=== PATIENT | male | born 1960 | race Caucasian/White ===

== ENCOUNTER 2024-02-02 11:10 | Outpatient (REF) | payer SELFPAY ==
[2024-02-02 13:39] LABS: Eosinophils Percent Auto 0.6 % (0-4); Hematocrit 38.1 % (42.0-52.0); Hemoglobin 13.2 g/dl (14.0-18.0); Lymphocytes Absolute Auto 1.4 X10*3/uL (1.2-4.9); Lymphocytes Percent Auto 82.2 % (20-40); MANUAL DIFF FLAG SCAN; Mean Corpuscular HGB Conc 34.6 g/dl (31.0-36.0); Mean Corpuscular Hemoglobin 32.3 pg (27.0-33.0); Mean Corpuscular Volume 93.2 fL (80.0-98.0); Monocytes Percent Auto 0.6 % (2-11); Neutrophils Absolute Auto 0.3 x10*3/uL (2.0-8.3); Neutrophils Percent Auto 16.6 % (45-73); Red Blood Count 4.09 X10*6/uL (4.60-5.80); Red Cell Distribution Width 14.1 % (11.0-16.0); SCAN SMEAR FLAG 1; White Blood Count 1.7 X10*3/uL (4.8-10.8)
[2024-02-02 13:54] LABS: Alanine Aminotransferase 14 U/L (0-40); Albumin Level 4.5 g/dL (3.5-5.0); Alkaline Phosphatase 24 U/L (39-117); Anion Gap 12 (12-20); Aspartate Amino Transferase 18 U/L (5-37); Bilirubin Total 0.9 mg/dL (0.0-1.0); Blood Urea Nitrogen 19 mg/dL (9-16); Calcium 9.5 mg/dL (8.4-10.2); Carbon Dioxide 27 mmol/L (22-29); Chloride 106 mmol/L (96-108); Estimated Glomerular Filt Rate > 60; Glucose Random 103 mg/dL (60-115); Potassium 4.5 mmol/L (3.3-5.1); Sodium 140 mmol/L (135-145); Total Protein 7.6 g/dL (6.5-8.0)
[2024-02-02 13:58] LABS: Mean Platelet Volume 9.7 fL (9.4-12.4); Platelet Count 83 X10*3/uL (160-400)
[2024-02-02 14:00] LABS: SLIDE REVIEW VERIFIED
== END 2024-02-02 11:11 | disposition home or self-care (01) ==
LOC: HO.HHCL 11:10
PROVIDERS: Visit Provider Internal Medicine
DX: K21.9 Gastro-esophageal reflux disease without esophagitis (principal); I10 Essential (primary) hypertension
CPT/HCPCS: 36415; 80053; 85025

== ENCOUNTER 2024-03-11 08:41 | Outpatient (REF) | payer SELFPAY ==
[2024-03-11 11:54] LABS: Basophils Percent Auto 0.5 % (0-2); Eosinophils Percent Auto 0.5 % (0-4); Hematocrit 35.7 % (42.0-52.0); Hemoglobin 12.1 g/dl (14.0-18.0); Lymphocytes Absolute Auto 1.7 X10*3/uL (1.2-4.9); MANUAL DIFF FLAG SCAN; Mean Corpuscular HGB Conc 33.9 g/dl (31.0-36.0); Mean Corpuscular Hemoglobin 31.2 pg (27.0-33.0); Mean Platelet Volume 9.7 fL (9.4-12.4); Neutrophils Absolute Auto 0.4 x10*3/uL (2.0-8.3); Platelet Count 127 X10*3/uL (160-400); Red Blood Count 3.88 X10*6/uL (4.60-5.80); Red Cell Distribution Width 13.8 % (11.0-16.0); SCAN SMEAR FLAG 1
[2024-03-11 12:05] LABS: White Blood Count 2.1 X10*3/uL (4.8-10.8)
[2024-03-11 12:12] LABS: C Reactive Protein 3.12 mg/dL (< or = 0.50); Lactate Dehydrogenase 221 U/L (118-273)
[2024-03-11 12:23] LABS: SLIDE REVIEW VERIFIED
[2024-03-11 12:43] LABS: Erythrocyte Sedimentation Rate 86 MM/HR (0-15)
[2024-03-11 12:52] LABS: Folate 10.8 ng/mL (> or = 4.0); Vitamin B12 565 pg/mL (200-900)
== END 2024-03-11 08:42 | disposition home or self-care (01) ==
LOC: HO.HHCL 08:41
PROVIDERS: Visit Provider General Practice
DX: D70.9 Neutropenia, unspecified (principal)
CPT/HCPCS: 36415; 82607; 82746; 83615; 85025; 85652; 86140

== ENCOUNTER 2024-03-14 11:17 | Outpatient (REF) | payer MEDICARE, SELFPAY ==
--- NOTE | ~2024-03-14 | CT_ITS ---
EXAMINATION: CT ABDOMEN AND PELVIS WITH CONTRAST CLINICAL INFORMATION: Splenomegaly COMPARISON: None available. TECHNIQUE: Multidetector volumetric images were obtained from the superior aspect of the liver through the pubic symphysis following administration 85 mL of Omnipaque 350 intravenous contrast. Sagittal and coronal reformatted images were obtained on the technologist's workstation. Oral contrast: Yes This CT examination was performed using dose optimization techniques as appropriate, variously including the following: *Automated exposure control *Adjustment of mA and/or kV according to patient size (this includes techniques or standardized protocols for targeted exams where dose is matched to indication/reason for exam; i.e. extremities or head) *Use of iterative reconstruction technique DLP: 387 mGy-cm FINDINGS: LUNG BASES: The visualized lung bases are unremarkable. LIVER, GALLBLADDER, AND BILIARY TREE: The liver is normal in size, shape, and attenuation. No focal hepatic lesion or biliary ductal dilatation is present. The gallbladder is unremarkable with no evidence of radiopaque gallstones, gallbladder wall thickening, or obvious pericholecystic inflammatory changes. PANCREAS: Unremarkable. SPLEEN: The spleen is enlarged, up to 16.7 cm in length. ADRENAL GLANDS: Unremarkable. KIDNEYS AND URETERS: The kidneys are normal in size, shape, and attenuation. No hydronephrosis, hydroureter, or calculi seen. No perinephric stranding. BLADDER: Unremarkable. GASTROINTESTINAL TRACT: Sigmoid diverticulosis. No focal inflammatory process or obstruction. Normal appendix. ABDOMINAL WALL: No significant hernia is appreciated. LYMPH NODES: Normal. VASCULAR: The splenic vein is prominent. PELVIC VISCERA: The prostate is mildly enlarged with several coarse calcifications. OSSEOUS STRUCTURES: There is a superior endplate fracture of L1 which appears chronic, with 50-60% loss of vertebral body height. CT/CT abdomen pelvis w IV con IMPRESSION: 1. No focal inflammatory process or obstruction. 2. Splenomegaly. The splenic vein is prominent and may indicate portal hypertension. Liver appears normal. 3. Sigmoid diverticulosis. 4. Chronic appearing superior endplate fracture of L1. Fleischner guidelines were followed. Electronically signed by: Landry Farr MD 03/14/2024 05:28 PM [facility]
[2024-03-14] MEDS: iohexoL 350 MG/ML 100 ML INFUS..BTL 85 ML IV (14:31)
[2024-03-14] MEDS: Barium Sulfate Oral (Vanilla) 450 ML ORAL.SUSP 900 ML PO (14:32)
[2024-03-14 16:47] LABS: Creatinine POC 0.9 mg/dL (0.5-1.4); GFR POC > 60
== END 2024-03-14 11:18 | disposition home or self-care (01) ==
LOC: HO.CT 11:17
PROVIDERS: PCP General Practice; Visit Provider General Practice
DX: D70.9 Neutropenia, unspecified (principal); R10.10 Upper abdominal pain, unspecified; R16.1 Splenomegaly, not elsewhere classified
CPT/HCPCS: 74177; 82565; Q9967

== ENCOUNTER 2024-03-18 12:22 | Emergency (ER) | payer MEDICARE, OTHER, SELFPAY ==
--- NOTE | 2024-03-18 12:25 | ED.GENADULT ---
HPI - General Adult General Chief complaint: Recheck/Abnormal Lab/Rx Stated complaint: Sent By Drs Office Time Seen by Provider: 03/18/24 13:40 Source: patient Mode of arrival: ambulatory Limitations: no limitations History of Present Illness ED Provider: DR. Kenyon HPI narrative: 63-year-old male was brought in from [facility] for evaluation of possible rectal bleed reportedly the patient had rectal exam at [facility] and was positive for blood. Patient stated that he was bleeding from his rectum 7 days ago but resolved now, patient otherwise has no abdominal pain, no chest pain, no dizziness or lightheadedness, noSOB. Patient did CT abdomen and pelvis 3 days ago as an outpatient with negative for acute pathology. Related Data Allergies Allergy/AdvReac Type Severity Reaction Status Date / Time No Known Allergies Allergy Verified 03/18/24 12:27 Review of Systems Review of Systems: all other systems are reviewed and are negative Constitutional: Reports as per HPI and Reports no additional constitutional complaints Eyes: Reports as per HPI and Reports no additional eye complaints Reports system reviewed and no additional complaints, except as documented Cardiovascular: Reports as per HPI and Reports no additional cardiovascular complaints Respiratory: Reports as per HPI and Reports no additional respiratory complaints Gastrointestinal: Reports as per HPI and Reports no additional gastrointestinal complaints Genitourinary: Reports no additional female genitourinary complaints Musculoskeletal: Reports no additional musculoskeletal complaints Skin/Breast: Reports system reviewed and no additional complaints, except as docu Psychiatric: Reports no additional psychiatric complaints Endocrine: Reports no additional endocrine complaints Hematologic/Lymphatic: Reports no additional hematologic/lymphatic complaints Allergic/Immunologic: Reports no additional allergic/immunologic complaints Reports system reviewed and no additional complaints, except as documented and Reports Abnormal speech present [facility] Social History Social History Advance Directives: No Advance Directives Information Provided: Yes Do you have a plan to hurt others: No Plan Physical Exam ED Vital Signs: Vital Signs - 24 hr 03/18/24 12:26 03/18/24 14:17 Temperature 97.4 F 98.2 F Pulse Rate 90 80 Respiratory Rate 18 16 Blood Pressure 120/71 115/77 Pulse Oximetry 98 98 Oxygen Delivery Method Room Air Room Air BMI result Body Mass Index 25.8 Vital signs have been reviewed and appear to be correct. Blood pressure elevated. Heart rate normal. Respiratory rate normal. Temperature normal. Oxygen saturation normal. Appearance: Alert. Oriented X3. No acute distress. Head: Normal external exam. Normocephalic. Atraumatic. No Seymour signs noted. No raccoon eyes noted Eyes: PERRLA. EOMI. Conjunctiva and sclera normal. Eyelids normal. ENT: TM's Normal. Pharynx normal. Uvula midline. Moist mucous membranes. No trismus noted. No drooling noted. No muffled voice noted. Neck: Normal inspection. Neck supple. FROM. No adenopathy. Thyroid Normal. No meningeal signs. No neck mass noted. CVS: Normal heart rate and rhythm. Heart sound normal. No murmurs noted. Pulses normal throughout. Respiratory: No respiratory distress. Painless inspiration. Breath sounds normal. No wheezes/rales/rhonchi noted. Chest nontender. No accessory muscle usage noted or decreased air movement noted. Abdomen: Soft and nontender. Bowel sounds normal in all 4 quadrants. No distention noted. No organomegaly noted. No visible injury noted. Rectal exam: No external hemorrhoid, no palpable internal hemorrhoid, light brown stool in the vault, guaiac negative. Back: No CVA tenderness. Full range of motion noted. Skin: Skin warm and dry. Normal skin color. Normal skin turgor. No rashes/lesions/lacerations noted. Extremities: No lower extremity edema. Extremities exhibit normal range of motion. Extremities nontender. Neuro: Oriented X 3. Cranial nerve exam: II-XII are grossly intact No motor deficit. No sensory deficit. Reflexes normal. Course Course Course Narrative: RME performed by Katharine Curry PA-C. Patient is a 63 year old assigned male at presenting to the emergency department with GI bleeding. Patient states he has been following up with the [facility] for pancytopenia and they discovered today that he is having bloody stools. [facility] doctor called and informed me that the patient's rectal exam confirmed bloody stools. Detailed physical exam and review of systems are deferred to the loss prevention analyst. Labs ordered. Patient placed back in the waiting room pending room availability and results. Reevaluation(s) Reevaluation #1: 63-year-old male sent from [facility] for concern of rectal bleed, in the ED patient has no abdominal pain, no rectal bleed with negative guaiac in the emergency department, reviewing patient labs patient was chronic anemia and gradually dropping his hemoglobin, patient show no sign bleeding, patient is reporting that his PCP is working to refer him to a blood Droctor . Patient has no indication for hospitalization or inpatient treatment at this point. Will discharge and follow-up with PCP. Time: 15:15 Medical Decision Making Differential Diagnosis Differential Diagnoses: The differential diagnosis associated with the presentation includes ( colitis, diverticulitis, pancreatitis, severe anemia, electrolyte derangement , rectal bleed.) Admission/Observation Consideration of admission/observation: Escalation of care including admission/observation considered Lab Data MDM Lab Attestation statement: I reviewed the patient's lab results. 03/18/24 12:41 03/18/24 12:41 Labs: Lab Results 03/18/24 03/18/24 Range/Units 12:41 13:54 WBC 2.2 L (4.8-10.8) X10*3/uL RBC 3.24 L (4.60-5.80) X10*6/uL Hgb 10.1 L (14.0-18.0) g/dl Hct 29.6 L (42.0-52.0) % MCV 91.4 (80.0-98.0) fL MCH 31.2 (27.0-33.0) pg MCHC 34.1 (31.0-36.0) g/dl RDW 13.3 (11.0-16.0) % Plt Count 173 D (160-400) X10*3/uL MPV 8.7 L (9.4-12.4) fL Immature Gran % (Auto) 3.2 H (0.0-0.4) % Neut % (Auto) 16.0 L (45-73) % Lymph % (Auto) 79.4 H (20-40) % Ector % (Auto) 0.9 L (2-11) % Eos % (Auto) 0.5 (0-4) % Baso % (Auto) 0.0 (0-2) % Lymph # (Auto) 1.7 (1.2-4.9) X10*3/uL Ector # (Auto) 0.0 L (0.1-1.2) X10*3/uL Eos # (Auto) 0.0 (0.0-0.4) X10*3/uL Baso # (Auto) 0.0 (0.0-0.2) X10*3/uL Abs Immat Gran (auto) 0.07 H (0.00-0.03) X10*3/uL Absolute Neuts (auto) 0.4 L (2.0-8.3) x10*3/uL Absolute Nucleated RBC 0.000 (0.0-0.012) X10*3/uL Nucleated RBC % (auto) 0.0 (0.0-0.2) /100WBC Smear Tech's Comments VERIFIED PT 14.0 H (10.9-12.4) SEC INR 1.2 H (0.9-1.1) APTT 35.8 (26.0-36.8) SEC Sodium 135 (135-145) mmol/L Potassium 4.2 (3.3-5.1) mmol/L Chloride 103 (96-108) mmol/L Carbon Dioxide 23 (22-29) mmol/L Anion Gap 13 (12-20) BUN 14 (9-16) mg/dL Creatinine 1.15 (0.5-1.4) mg/dL Estim Creat Clear Calc 70.2 Estimated GFR > 60 Random Glucose 104 (60-115) mg/dL Calcium 9.3 (8.4-10.2) mg/dL Magnesium 2.3 (1.6-2.6) mg/dL Total Bilirubin 0.8 (0.0-1.0) mg/dL AST 16 (5-37) U/L ALT 14 (0-40) U/L Alkaline Phosphatase 28 L (39-117) U/L Total Protein 7.8 (6.5-8.0) g/dL Albumin 4.0 (3.5-5.0) g/dL Stool Occult Blood NEGATIVE (NEGATIVE) Independent Interpretation I performed an independent interpretation of an: CT Scan ( abdomen and pelvis done as an outpatient on 03/14:1. No focal inflammatory process or obstruction. 2. Splenomegaly. The splenic vein is prominent and may indicate portal hypertension. Liver appears normal. 3. Sigmoid diverticulosis. 4. Chronic appearing superior endplate fracture of L1. ) Radiology Impression Discussion of test interpretation with radiology: I have reviewed the radiologist's reading. Discharge Plan Discharge Clinical Impression: Anemia Patient Disposition: Home, Self-Care Instructions: Anemia (ED) Referrals: Criselda Trinh MD [Primary Care Provider] - Print Language: Citizen [place]
[2024-03-18 12:26] VITALS: BP 120/71; PULSE 90; RESP 18; TEMP 36.3; O2SAT 98; BMI 25.8
[2024-03-18 12:46] LABS: Eosinophils Percent Auto 0.5 % (0-4); Hemoglobin 10.1 g/dl (14.0-18.0); Imm Gran Abs Auto 0.07 X10*3/uL (0.00-0.03); Imm Gran Pct Auto 3.2 % (0.0-0.4); Lymphocytes Absolute Auto 1.7 X10*3/uL (1.2-4.9); Lymphocytes Percent Auto 79.4 % (20-40); MANUAL DIFF FLAG SCAN; Mean Corpuscular HGB Conc 34.1 g/dl (31.0-36.0); Mean Corpuscular Hemoglobin 31.2 pg (27.0-33.0); Mean Corpuscular Volume 91.4 fL (80.0-98.0); Mean Platelet Volume 8.7 fL (9.4-12.4); Monocytes Percent Auto 0.9 % (2-11); Neutrophils Absolute Auto 0.4 x10*3/uL (2.0-8.3); Platelet Count 173 X10*3/uL (160-400); Red Blood Count 3.24 X10*6/uL (4.60-5.80); Red Cell Distribution Width 13.3 % (11.0-16.0); SCAN SMEAR FLAG 1
[2024-03-18 12:47] LABS: White Blood Count 2.2 X10*3/uL (4.8-10.8)
[2024-03-18 12:48] LABS: Hematocrit 29.6 % (42.0-52.0)
[2024-03-18 12:52] LABS: INTERNATIONAL NORM RATIO 1.2 (0.9-1.1)
[2024-03-18 12:55] LABS: Partial Thromboplastin Time 35.8 SEC (26.0-36.8)
[2024-03-18 12:59] LABS: Alanine Aminotransferase 14 U/L (0-40); Alkaline Phosphatase 28 U/L (39-117); Anion Gap 13 (12-20); Aspartate Amino Transferase 16 U/L (5-37); Bilirubin Total 0.8 mg/dL (0.0-1.0); Blood Urea Nitrogen 14 mg/dL (9-16); Calcium 9.3 mg/dL (8.4-10.2); Carbon Dioxide 23 mmol/L (22-29); Chloride 103 mmol/L (96-108); Creatinine Clr Calc Pharmacy 70.2; Estimated Glomerular Filt Rate > 60; Glucose Random 104 mg/dL (60-115); Magnesium 2.3 mg/dL (1.6-2.6); Potassium 4.2 mmol/L (3.3-5.1); Sodium 135 mmol/L (135-145); Total Protein 7.8 g/dL (6.5-8.0)
[2024-03-18 13:24] LABS: SLIDE REVIEW VERIFIED
[2024-03-18 14:03] LABS: OBS Int Ctl Valid YES; OBS1 NEGATIVE (NEGATIVE)
[2024-03-18 14:17] VITALS: BP 115/77; PULSE 80; RESP 16; TEMP 36.8; O2SAT 98
[2024-03-18 15:27] VITALS: BP 115/77; PULSE 80; RESP 16; TEMP 36.8; O2SAT 98
== END 2024-03-18 15:27 | disposition home or self-care (01) ==
PROVIDERS: Physician Assistant Medical; Emergency Provider Emergency Medicine; PCP General Practice
DX: D64.9 Anemia, unspecified (principal); K62.5 Hemorrhage of anus and rectum
CPT/HCPCS: 36415; 80053; 82272; 83735; 85025; 85610; 85730; 99283

== ENCOUNTER → 2024-04-03 14:27 | Outpatient (BNV) | payer MEDICARE, SELFPAY | PROVIDERS: PCP General Practice; Referring Provider General Practice; Visit Provider Internal Medicine | DX: D61.818 Other pancytopenia (principal) | CPT/HCPCS: 99204; G2211 ==

== ENCOUNTER 2024-09-30 15:53 | Outpatient (REF) | payer MEDICARE, MEDICAID, SELFPAY ==
--- NOTE | ~2024-09-30 | XR_ITS ---
EXAMINATION: XR SHOULDER, RIGHT CLINICAL INFORMATION: Acute and severe right shoulder pain, port in place COMPARISON: None available. TECHNIQUE: AP external and internal rotation, and scapular Y, views of the right shoulder. FINDINGS: Port-A-Cath projects over the right central chest with catheter tip terminating at the superior cavoatrial junction. Visualized portion of the right lung are clear. AC joint is intact and not degenerated. The glenohumeral joint is intact and not degenerated. No abnormal lucency or other abnormalities are seen. XR/XR shoulder RT min 2V IMPRESSION: Unremarkable right shoulder. Port-A-Cath tip terminates at the superior cavoatrial junction. Electronically signed by: Orion Coffey MD 09/30/2024 04:34 PM EDT
--- OUTSIDE RECORDS SUMMARY | 2024-09-30 17:30 | XMS_ITS | Encounter Summary ---
Author Organization [employer] Address [address] [place] [address] Care Team Providers Care Data Entry Specialist Name Role Phone Criselda Trinh MD Primary Care Provider [phone] Reason for Visit * Reason Onset Date Comments Chart Prep 09/27/2024 Encounter Details Date Type Department Care Team (Late st Contact Info) Description 09/27/2024 Telephone [facility] [address], [place] [phone] Criselda Trinh MD [address], [place] [phone] Chart Prep Social History Tobacco Use Types Packs/Day Years Used Date Smoking Tobacco: Never Smokeless Tobacco: Never Alcohol Use Standard Drinks/Week Comments Yes 0 (1 standard drink = 0.6 oz pur e alcohol) Depression Answer Date Recorded Patient Health Questionnaire-9 Score 2 04/29/2024 Patient Health Questionnaire-9 Score 2 04/29/2024 Last PHQ-9: Questionnaire Data Not on file 0 04/29/2024 Housing Stability Answer Date Recorded What is your housing situation today? I have nimo hobbs 04/29/[address] you li ve. Do you have problems with any of the following? None of the above 04/29/2024 Food Insecurity Answer Date Recorded Within the past 12 months, y ou worried that your food would run out before you got money to buy more: Never True 04/29/2024 Within the past 12 months,th e food you bought just didn't last and you didn't have enough money to get more: Never True 09/2024 Transportation Answer Date Recorded In the past 12 months, has l ack of transportation kept you from medical appts, meetings, work or from getting things needed for daily living? No 04/29/2024 Utilities Answer Date Recorded In the past 12 months, has t he electric, gas, oil or water company threatened to shut off services in your home? No 04/29/2024 Depression Answer Date Recorded Patient Health Questionnaire-2 Score 0 04/29/2024 Internet Access Answer Date Recorded Internet Access Q1 Yes 04/29/2024 Internet Access Q2 Not on file 04/29/2024 Sex and Gender Information Value Date Recorded Sex Assigned at Male 01/15/2024 8:49 AM EDT Legal Sex Male 1:23 PM EDT Gender Identity Male 01/15/2024 8:49 AM EDT Sexual Orientation Straight 02/02/2024 9: 34 AM EDT documented as of this encounter Miscellaneous Notes * Telephone Encounter - Kristen Fortune MA - 09/27/2024 12:03 PM EDT Chart Prep Labs: not applicable Images: not applicable Referrals: not applicable Vaccines due: Covid, PCV20, Tdap, and Zoster Screenings: colonoscopy and Hepatitis C Screening Overdue care gaps: SBIRT, FAB-7, and Oral health screening documented in this encounter Plan of Treatment Not on file documented as of this encounter Visit Diagnoses Not on filedocumented in this encounter Additional Health Concerns Assessment Noted Time PHQ-9 Depression Total Score: 2 04/29/19 25 3:13 PM EST documented as of this encounter Care Teams Data Entry Specialist Relationship Specialty Start Date End Date Criselda Trinh MD [address] [place] [id number] PCP - General Family Medicine 02/09/24 documented as of this encounter
== END 2024-09-30 15:54 | disposition home or self-care (01) ==
LOC: HO.HHCX 15:53
PROVIDERS: Visit Provider General Practice
DX: M25.511 Pain in right shoulder (principal)
CPT/HCPCS: 73030

== ENCOUNTER → 2024-09-30 15:54 | Outpatient (BNV) | payer MEDICARE, MEDICAID, SELFPAY | PROVIDERS: Visit Provider Radiology Diagnostic Radiology | DX: M25.511 Pain in right shoulder (principal) | CPT/HCPCS: 73030 ==